=== PATIENT | male | born 1970 | race Caucasian/White ===

== ENCOUNTER 2023-01-20 03:06 | Emergency (ER) | payer BC, OTHER ==
[2023-01-20 03:49] VITALS: BP 148/93; PULSE 77; RESP 20; TEMP 98.1; BMI 30.2
== END 2023-01-20 04:54 | disposition home or self-care (01) ==
LOC: JER 03:06
DX: R06.02 Shortness of breath (principal)
CPT/HCPCS: 99282-25

== ENCOUNTER 2024-06-09 03:55 | Day surgery (SDC) | payer BC, OTHER ==
[2024-06-07 13:35] VITALS: BMI 30.1
[2024-06-09] MEDS ORDERED: BACITRACIN ZINC 15 GM TUBE TOPICAL OINTMENT ONE (07:16)
[2024-06-09] MEDS ORDERED: LIDOCAINE 1%/EPI 1:100000 (20 ML MULTI DOSE VIAL) ONE (07:16)
[2024-06-09] MEDS ORDERED: COCAINE HCL 4% TOPICAL SOLUTION 4 ML BOTTLE TP ONE (07:17)
[2024-06-09] MEDS ORDERED: DEXAMETHASONE SOD PHOSPHATE 4 MG/1 ML VIAL ONE (07:42)
[2024-06-09] MEDS ORDERED: ONDANSETRON 4 MG/2 ML VIAL ONE (07:42)
[2024-06-09] MEDS ORDERED: ceFAZolin SODIUM 1 GM VIAL ONE (07:42)
[2024-06-09] MEDS ORDERED: GLYCOPYRROLATE 0.2 MG/1 ML VIAL ONE (07:42)
[2024-06-09] MEDS ORDERED: SUCCINYLCHOLINE CHLORIDE 200 MG/10 ML SYRINGE ONE (07:42)
[2024-06-09] MEDS ORDERED: MIDAZOLAM HCL 2 MG/2 ML SINGLE DOSE VIAL ONE (07:47)
[2024-06-09] MEDS ORDERED: ACETAMINOPHEN INJECTION 100 ML ONE (07:50)
[2024-06-09] MEDS ORDERED: REMIFENTANIL (ULTIVA) HCL 1 MG VIAL ONE (07:50)
[2024-06-09] MEDS ORDERED: CLINDAMYCIN PHOSPHATE 600 MG/4 ML VIAL ONE (08:12)
[2024-06-09] MEDS ORDERED: HYDROmorphone HCl 2 MG/ML VIAL ONE (08:27)
[2024-06-09] MEDS: CLINDAMYCIN 900 MG PREMIX BAG IVPB ONE (08:40)
[2024-06-09] MEDS: LIDOCAINE 1%/EPI 1:100000 (50 ML MULTI DOSE VIAL) INF ONE (08:46)
[2024-06-09] MEDS: OXYMETAZOLINE 0.05% NASAL SOLUTION 15 ML BOTTLE NS ONE (08:47)
[2024-06-09] MEDS: BACITRACIN ZINC 15 GM TUBE TOPICAL OINTMENT TP ONE ×2 (09:22→10:15)
[2024-06-09] MEDS ORDERED: LIDOCAINE HCL/PF 2% SDV 5ML VIAL ONE (10:22)
[2024-06-09] MEDS ORDERED: oxyCODONE HCL 5 MG TABLET PO PRN (11:04)
[2024-06-09] MEDS ORDERED: ONDANSETRON 4 MG/2 ML VIAL IVPUSH PRN (11:04)
[2024-06-09] MEDS ORDERED: LACTATED RINGERS SOLUTION 1,000 ML IV SCH (11:15)
[2024-06-09 12:46] VITALS: RESP 20; TEMP 97.5
[2024-06-09 16:23] VITALS: BP 128/89; PULSE 90
== END 2024-06-09 13:40 | disposition home or self-care (01) ==
LOC: JASU-SURG 03:55
PROVIDERS: ATTEND Otolaryngology
PROC: 09BU8ZZ Excision of Right Ethmoid Sinus, Via Natural or Artificial Opening Endoscopic (ICD-10-PCS; 2024-06-09)
PROC: 8E09XBZ Computer Assisted Procedure of Head and Neck Region (ICD-10-PCS; 2024-06-09)
PROC: 09BV8ZZ Excision of Left Ethmoid Sinus, Via Natural or Artificial Opening Endoscopic (ICD-10-PCS; principal; 2024-06-09 08:00)
DX: J32.0 Chronic maxillary sinusitis (principal); J32.2 Chronic ethmoidal sinusitis
CPT/HCPCS: 88304-TC; 88311-TC; 94760; J0131